=== PATIENT | female | born 1970 | race Caucasian/White ===

== ENCOUNTER 2022-10-23 18:40 | Inpatient (IN) | payer OTHER ==
[~2022-10-23] VITALS: Ht 147.3 cm; Wt 80.3 kg
[2022-10-23] MEDS ORDERED: ATORVASTATIN CA10 MG PO (19:42)
--- NOTE | 2022-10-23 19:51 | NUR ---
SE RECIBE FEMINA ALERTA Y ORIENTADA X3 REFERIDA POR DR CAROL SETH DEBIDO A WBC ELEVADOS. SE UBICA EN D[place]OTAH 8 PEND A EVALUACION MEDICA.
--- NOTE | 2022-10-23 20:30 | NUR ---
PTE FEMENINA EVALUADA POR . SE ORIENTA SOBRE ORDENES DE [place] REFIERE COMPRENDER. SE COLECTAN MUESTRAS DE LAB[facility]ATORI[facility] Y SE CANALIZA VENA BAJO MEDIDAS ASEPTICAS. SE ADMINISTRAN MEDICAMENTOS, BAJO MEDIDAS ASEPTICAS.
--- NOTE | 2022-10-24 07:26 | NUR ---
SE RECIBE PACIENTE FEMENINA ALERTA Y ORIENTADA X3, EN CAMA K6 CON BARRANDAS ELEVADAS. AREA DE VENOPUNCION CON 0.9 NSS 1,000 BAJANDO A 150 ML/HR PATENTE WERNER DE EDEMA Y ENROJECIMIENTO. PENDIENTE A RE-EVALUCAION. SE LE LIYA EN TODO MOMENTO PRIVACIDAD Y SEGURIDAD.
== END 2022-11-12 18:59 | disposition home or self-care (01) | DRG 570 ==
LOC: ER 18:40 → MEDJ 10-24 20:26 → ER 10-24 20:26 → SEC-K 10-24 20:26 → MEDJ 10-24 21:34 → MEDI 10-30 10:27 → MEDJ 10-30 15:46 → MEDI 10-30 17:21 → MEDJ 10-30 22:39
PROVIDERS: ADMIT Internal Medicine; ATTEND Internal Medicine
PROC: 3E0F7SF Introduction of Other Gas into Respiratory Tract, Via Natural or Artificial Opening (ICD-10-PCS; 2022-10-25)
PROC: 0JBR0ZZ Excision of Left Foot Subcutaneous Tissue and Fascia, Open Approach (ICD-10-PCS; principal; 2022-10-26)
PROC: BQ3FZZZ Magnetic Resonance Imaging (MRI) of Left Lower Leg (ICD-10-PCS; 2022-10-26)
PROC: 0HBQXZZ Excision of Finger Nail, External Approach (ICD-10-PCS; 2022-11-02)
PROC: 0JBJ0ZZ Excision of Right Hand Subcutaneous Tissue and Fascia, Open Approach (ICD-10-PCS; 2022-11-02)
PROC: 0WBFXZX Excision of Abdominal Wall, External Approach, Diagnostic (ICD-10-PCS; 2022-11-07)
PROC: 0WB Anatomical Regions, General, Excision (ICD-10-PCS; 2022-11-07)
PROC: 0XB40ZX Excision of Right Axilla, Open Approach, Diagnostic (ICD-10-PCS; 2022-11-07)
DX: L03.032 Cellulitis of left toe (principal); U07.1 COVID-19; L02.612 Cutaneous abscess of left foot; L03.311 Cellulitis of abdominal wall; L10.0 Pemphigus vulgaris; L10.1 Pemphigus vegetans; L10.2 Pemphigus foliaceous; L10.89 Other pemphigus; N39.0 Urinary tract infection, site not specified; L97.529 Non-pressure chronic ulcer of other part of left foot with unspecified severity; L98.499 Non-pressure chronic ulcer of skin of other sites with unspecified severity; L03.011 Cellulitis of right finger; L60.3 Nail dystrophy; B35.1 Tinea unguium; K12.0 Recurrent oral aphthae; E87.6 Hypokalemia; K12.1 Other forms of stomatitis; E78.5 Hyperlipidemia, unspecified; B96.5 Pseudomonas (aeruginosa) (mallei) (pseudomallei) as the cause of diseases classified elsewhere
CPT/HCPCS: 73723